=== PATIENT | male | born 1960 | race Caucasian/White ===

== ENCOUNTER 2024-09-29 17:16 | Emergency (ER) | payer BC, MEDICAID, MEDICARE ==
[~2024-09-29] VITALS: Ht 177.8 cm; Wt 91.8 kg
[2024-09-29 18:17] VITALS: BP 171/88; RESP 16; TEMP 98.2; O2SAT 97
--- NOTE | 2024-09-29 18:40 | ED.PDOC ---
Back pain HPI HPI Comments PT STATES HE FELT MUSCLOSKELETAL PAIN TO RIGHT SIDE WITH TINGLING DOWN RIGHT ARM X 3 DAYS AGO. 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 DENIES CP, SOB. PT IS AAOX4, CLEAR SPEECH, BILATERAL UPPER AND LOWER EXTREMITY STRENGTH NOTED. AMBULATED WITH STEADY GAIT. Chief Complaint: Upper Extremity Time Seen by MD: 17:59 Primary Care Provider: NONE Reviewed Notes: Nurses Notes, Medications, Allergies Allergies: Coded Allergies: Tramadol (Unverified Allergy, Severe, 05/27/14) "suicidal" Codeine (Verified Allergy, Unknown, 09/29/24) Erythromycin (Verified Allergy, Unknown, 05/27/14) Lidocaine (Verified Allergy, Unknown, 09/29/24) Home Meds Active Scripts Tizanidine Hydrochloride (Tizanidine Hcl) 4 Mg Tab, 4 MG PO BID PRN for 6 Days, #12 TAB Prov:KIMBERLY DORADO [facility] 09/29/24 Discontinued Scripts Tizanidine Hydrochloride (Tizanidine Hcl) 4 Mg Tab, 4 MG PO BID PRN for 6 Days, #12 TAB Prov:KIMBERLY DORADO [facility] 09/29/24 Information Source: Patient Mode of Arrival: Ambulatory Past Medical History PAST MEDICAL HISTORY: Anxiety Surgical History: Denies all surgeries Family History Family History: Unobtainable Social History Smoker: Non-Smoker Alcohol: Denies ETOH Use Drugs: Denies Drug Use Lives In: Home Constitutional: denies: chills, diaphoresis, fatigue, fever, malaise, sweats, weakness, others EENTM: denies: blurred vision, double vision, ear bleeding, ear discharge, ear drainage, ear pain, ear ringing, eye pain, eye redness, hearing loss, mouth pain, mouth swelling, nasal discharge, nose bleeding, nose congestion, nose pa in, photophobia, tearing, throat pain, throat swelling, voice changes, others Respiratory: denies: cough, hemoptysis, orthopnea, SOB at rest, shortness of breath, SOB with excertion, stridor, wheezing, others Cardiovascular: reports: chest pain; denies: dizzy spells, diaphoresis, Dyspnea on exertion, edema, irregular heart beat, left arm pain, lightheadedness, palpitations, PND, syncope, others Gastrointestinal: denies: abdomen distended, abdominal pain, blood streaked bowels, constipated, diarrhea, dysphagia, difficulty swallowing, hematemesis, m enrrique, nausea, poor appetite, poor fluid intake, rectal bleeding, rectal pain, vomiting, others Genitourinary: denies: burning, dysuria, flank pain, frequency, hematuria, incontinence, penile discharge, penile sore, pain, testicle pain, testicle swelling, urgency, others Neurological: denies: dizziness, fainting, headache, left sided numbness, left sided weakness, numbness, paresthesia, pre-existing deficit, right sided numbness, right sided weakness, seizure, speech problems, tingling, tremors, weakness, others Musculoskeletal: denies: back pain, gout, joint pain, joint swelling, muscle pain, muscle stiffness, neck pain, others Integumetry: denies: bruises, change in color, change in hair/nails, dryness, laceration, lesions, lumps, rash, wounds, others Allergic/Immunocompromised: denies: Difficulty Healing, Frequent Infections, Hives, Itching, others Hematologic/Lymphatic: denies: anemia, blood clots, easy bleeding, easy bruising, swollen glands, others Endocrine: denies: excessive hunger, excessive sweating, excessive thirst, excessive urination, flushing, intolerance to cold, intolerance to heat, unexplained weight gain, unexplained weight loss, others Psychiatric: denies: anxiety, bipolar disorder, depression, hopeless, panic disorder, schizophrenia, sleepless, suicidal, others Physical Exam General Appearance: No Apparent Distress, Normal HEENT: Pharynx Normal, TMs Normal Neck: Full Range of Motion, Non-Tender Respiratory: Chest Non-Tender, Lungs Clear, No Respiratory Distress, Normal B reath Sounds Cardiovascular: No Edema, No JVD, No Murmur, No Gallop, Normal Peripheral Pulses, Regular Rate/Rhythm Breast Exam: Deferred Gastrointestinal: No Organomegaly, Non Tender, No Pulsatile Mass, Normal Bowel Sounds, Soft Genitalia: Deferred Pelvic: Deferred Rectal: Deferred Extremities: Normal capillary refill, Normal inspection, Normal range of mo tion, Non-tender, No pedal edema Musculoskeletal : Apperance: Normal Neurologic: Alert, magisterial district judge II-XII nml as Tested, No Motor Deficits, Normal Affect, Normal Mood, No Sensory Deficits Cerebellar Function: Normal Reflexes: Normal Skin: Dry, Normal Color, Warm Lymphatic: No Adenopathy Was a procedure done? Was a procedure done?: No Back Pain Differential Dx Differential Diagnosis: Fracture, Musculoskeletal Pain X-Ray, Labs, Meds, VS Vital Signs Date Time Temp Pulse Resp B/P (MAP) Pulse Ox O2 Delivery O2 Flow Rate FiO2 09/29/24 19:33 75 09/29/24 18:17 87 16 97 Room Air 09/29/24 18:17 98.2 87 16 171/88 (115) 97 98.2 09/29/24 17:31 98.2 87 16 171/88 (115) 97 98.2 Current Medications Medications (Trade) Dose Ordered Sig/Cedrick Route Start Time Stop Time Status Last Admin Ketorolac Tromethamine (Toradol Injection) 60 mg ONCE ONCE IM 09/29/24 19:00 09/29/24 19:01 DC 09/29/24 19:01 Dexamethasone Sodium Phosphate (Decadron Injection) 10 mg ONCE ONCE IM 09/29/24 19:00 09/29/24 19:01 DC 09/29/24 19:01 X-Ray, Labs, Meds, VS Comment EKG WITHOUT ANY ECTOPY ST-ELEVATION, REVIEWED BY DR. CABRAL. CHEST X-RAY SHOWS NO CARDIOPULMONARY FINDINGS. LIKELY NERVE IMPINGEMENT OF THE PLEXUS RIGHT PECTORALIS MUSCLE. PATIENT GIVEN TORADOL 60 MG IM AND DECADRON 10 MG IM DOES REPORT IMPROVEMENT IN SYMPTOMS AND FUNCTION REQUESTING DISCHARGE AT THIS TIME. SCRIPT TRIAL MUSCLE RELAXER TO PHARMACY ADVISED TO TAKE MEDICATIONS PRESCRIBED SIDE EFFECTS DISCUSSED. ADVISED TO FOLLOW UP WITH HIS PRIMARY CARE DOCTOR IN 2 DAYS ER RETURN PRECAUTIONS GIVEN PATIENT INDICATES UNDERSTANDING AGREES WITH DISCHARGE PLAN OF CARE. Time of 1ST Reevaluation: 18:40 Reevaluation 1ST: Unchanged Time of 2ND Reevaluation: 19:25 Reevaluation 2ND: Improved Patient Education/Counseling: Diagnosis, Treatment, Prognosis, Need For Follow Up Family Education/Counseling: No Family Present Departure 1 Departure Time of Disposition: 19:33 Impression: Primary Impression: Strain of right pectoralis muscle Qualified Codes: S29.011A - Strain of muscle and tendon of front wall of thorax, initial encounter Disposition: HOME / SELF CARE / HOMELESS Condition: Stable e-Prescriptions Tizanidine Hydrochloride (Tizanidine Hcl) 4 Mg Tab 4 MG PO BID PRN for 6 Days, #12 TAB Prov: KIMBERLY DORADO 09/29/24 Discharged With: Self Critical Care Note Critical Care Time?: No Stability Stability form required: KIMBERLY Johns [facility] September 29, 2024 18:40
[2024-09-29] MEDS: KETOROLAC TROMETH 60MG/2ML VIAL IM ONE (19:01)
[2024-09-29] MEDS: DexAMETHasone SOD PHOS 10MG/1ML VIAL INJ IM ONE (19:01)
--- NOTE | 2024-09-29 19:12 | DVH ---
XY CHEST TWO VIEWS ROUTINE CLINICAL HISTORY: CHEST PAIN COMPARISON: None TECHNIQUE: Frontal and lateral view of the chest was obtained FINDINGS: Lines and Tubes: None Lungs: No focal consolidation. Pleura: No effusion. No pneumothorax. Cardiomediastinal contours: Unremarkable Bones: No acute osseous abnormality. IMPRESSION: 1. No acute cardiopulmonary disease.
[2024-09-29 19:33] VITALS: PULSE 75
[2024-09-29] MEDS ORDERED: TIZA-142 PO (19:35)
--- NOTE | 2024-10-01 12:53 | ECG ---
[facility] Test Date: 2024-09-29 Test Time: 19:05:59 Pat Name: BRI LUCIANO Department: ER Room: Gender: M Dental Technologist: SENTHIL : 1960 Requested By: KIMBERLY DORADO Order Number: [id number] Reading MD: Measurements Intervals [place] Rate: 75 P: 67 UT: 165 QRS: 41 QRSD: 88 T: 25 QT: 375 QTc: 419 Interpretive Statements Sinus rhythm Abnormal R-wave progression, early transition Please click the below link to view image of tracing.
== END 2024-09-29 19:41 | disposition home or self-care (01) ==
LOC: ER 17:16
DX: S29.011A Strain of muscle and tendon of front wall of thorax, initial encounter (principal); F41.9 Anxiety disorder, unspecified; Z88.5 Allergy status to narcotic agent; Z88.1 Allergy status to other antibiotic agents; Z79.899 Other long term (current) drug therapy; X58.XXXA Exposure to other specified factors, initial encounter; Y93.89 Activity, other specified; Y92.89 Other specified places as the place of occurrence of the external cause; Y99.8 Other external cause status
CPT/HCPCS: 71046; 93005; 96372; 99284; J1100; J1885